=== PATIENT | female | born 1935 | race Caucasian/White ===

== ENCOUNTER 2017-04-03 05:55 | Day surgery (SDC) | payer MEDICARE ==
[2017-03-30 09:18] VITALS: BP 119/65
[~2017-04-03] VITALS: Ht 162.6 cm; Wt 70.9 kg
[2017-04-03] VITALS (12 sets, daily range): BP systolic 118–132; BP diastolic 60–72
[~2017-04-03 05:55] MED LIST: ACETAMINOPHEN PO; ALPH600C3 PO; AMLO5TAB5 PO; ASPI-555 PO; ATOR10 PO; BIOT10005 PO; CALC600T12 PO; ESOM20CA31 PO; GABA-531 PO; GABA300C PO; LISI40TA4 PO; MULT-1192 PO; OMEG-53 PO; OXYCODONE PO; TRAM50TA4 PO; UBID200C18 PO; VITA1CAP PO; VITA1TAB22 PO
[2017-04-03] MEDS ORDERED: CEFAZOLIN SODIUM 1 GM VIAL ONE (06:26)
[2017-04-03] MEDS ORDERED: LACTATED RINGERS 1000ML 1,000 ML IV ONE (06:26)
[2017-04-03] MEDS ORDERED: LIDOCAINE HCL-MPF 0.5% 50ML VIAL IJ ONE (07:15)
[2017-04-03] MEDS ORDERED: GLYCOPYRROLATE 0.2 MG/ML 5 ML VIAL ONE (07:16)
[2017-04-03] MEDS ORDERED: SUCCINYLCHOLINE 200MG/10ML SYR ONE (07:16)
[2017-04-03] MEDS ORDERED: DEXAMETHASONE SOD PHOSPHATE 10MG/ML 1ML VIAL ONE (07:16)
[2017-04-03] MEDS ORDERED: ONDANSETRON HCL 4 MG/2 ML VIAL ONE (07:16)
[2017-04-03] MEDS ORDERED: LIDOCAINE PF 2% 5ML ABBOJECT ONE (07:16)
[2017-04-03] MEDS ORDERED: PROPOFOL 10 MG/ML 20ML VIAL IV ONE (07:17)
[2017-04-03] MEDS ORDERED: FENTANYL CITRATE PF 50 MCG/1 ML 2ML VIAL ONE (07:17)
[2017-04-03] MEDS ORDERED: MIDAZOLAM HCL 1 MG/ML 2ML VIAL ONE (07:17)
== END 2017-04-03 09:45 | disposition home or self-care (01) ==
LOC: DAH 05:55
PROVIDERS: ATTEND Neurological Surgery
DX: G56.02 Carpal tunnel syndrome, left upper limb (principal); Z79.899 Other long term (current) drug therapy; Z88.8 Allergy status to other drugs, medicaments and biological substances; I10 Essential (primary) hypertension; K21.9 Gastro-esophageal reflux disease without esophagitis; E78.5 Hyperlipidemia, unspecified
CPT/HCPCS: 64721; 93005; A4218; J0330; J0690; J1100; J2001; J2250; J2405; J2704; J3010; J3490 ×2; J7030; J7120

== ENCOUNTER 2017-12-18 05:53 | Day surgery (SDC) | payer MEDICARE ==
[2017-12-17 09:40] VITALS: BP 114/60
[~2017-12-18] VITALS: Ht 165.1 cm; Wt 72.1 kg
[2017-12-18] VITALS (15 sets, daily range): BP systolic 109–132; BP diastolic 60–70
[~2017-12-18 05:53] MED LIST changes: -ACETAMINOPHEN PO; -GABA300C PO; +NAPR220C15 PO; -OXYCODONE PO; -VITA1TAB22 PO
[2017-12-18] MEDS ORDERED: LIDOCAINE HCL-MPF 0.5% 50ML VIAL IJ ONE (06:52)
[2017-12-18] MEDS ORDERED: LACTATED RINGERS 1000ML 1,000 ML IV ONE (06:53)
[2017-12-18] MEDS ORDERED: LIDOCAINE PF 2% 5ML ABBOJECT ONE (06:54)
[2017-12-18] MEDS ORDERED: MIDAZOLAM HCL 1 MG/ML 2ML VIAL ONE (06:55)
[2017-12-18] MEDS ORDERED: ONDANSETRON HCL 4 MG/2 ML VIAL ONE (06:55)
[2017-12-18] MEDS ORDERED: DEXAMETHASONE SOD PHOSPHATE 10MG/ML 1ML VIAL ONE (06:55)
[2017-12-18] MEDS ORDERED: PROPOFOL 10 MG/ML 20ML VIAL IV ONE (06:55)
[2017-12-18] MEDS ORDERED: FENTANYL CITRATE PF 50 MCG/1 ML 2ML VIAL ONE (06:56)
[2017-12-18] MEDS: CEFAZOLIN SODIUM 1 GM VIAL ONE ×2 (07:09→07:30)
== END 2017-12-18 09:45 | disposition home or self-care (01) ==
LOC: DAH 05:53
PROVIDERS: ATTEND Neurological Surgery
DX: G56.01 Carpal tunnel syndrome, right upper limb (principal); Z79.899 Other long term (current) drug therapy; Z88.8 Allergy status to other drugs, medicaments and biological substances; I10 Essential (primary) hypertension; M19.90 Unspecified osteoarthritis, unspecified site; Z85.828 Personal history of other malignant neoplasm of skin
CPT/HCPCS: 64721; 93005; A4218; J0690; J1100; J2001; J2250; J2405; J2704; J3010; J3490; J7120 ×2

== ENCOUNTER → 2018-03-25 | Outpatient (CLI) | payer MEDICARE | END | disposition home or self-care (01) | LOC: RAH 10:27 | PROVIDERS: ATTEND Physical Medicine & Rehabilitation | DX: M51.16 Intervertebral disc disorders with radiculopathy, lumbar region (principal); M41.84 Other forms of scoliosis, thoracic region; M48.061 Spinal stenosis, lumbar region without neurogenic claudication | CPT/HCPCS: 72110 ==

== ENCOUNTER → 2018-04-05 | Outpatient (CLI) | payer MEDICARE | END | disposition home or self-care (01) | LOC: RAH 10:54 | PROVIDERS: ATTEND Physical Medicine & Rehabilitation | DX: M16.12 Unilateral primary osteoarthritis, left hip (principal); T84.090A Other mechanical complication of internal right hip prosthesis, initial encounter; M25.752 Osteophyte, left hip; Y83.1 Surgical operation with implant of artificial internal device as the cause of abnormal reaction of the patient, or of later complication, without mention of misadventure at the time of the procedure | CPT/HCPCS: 73502 ==

== ENCOUNTER → 2018-04-22 | Outpatient (CLI) | payer MEDICARE | END | disposition home or self-care (01) | LOC: RAH 13:02 | PROVIDERS: ATTEND Family Medicine | DX: M47.26 Other spondylosis with radiculopathy, lumbar region (principal); M41.86 Other forms of scoliosis, lumbar region; M43.8X6 Other specified deforming dorsopathies, lumbar region; M51.16 Intervertebral disc disorders with radiculopathy, lumbar region | CPT/HCPCS: 72148 ==

== ENCOUNTER → 2018-09-10 | Outpatient (CLI) | payer MEDICARE | END | disposition home or self-care (01) | LOC: RAH 12:55 | PROVIDERS: ATTEND Physical Medicine & Rehabilitation | DX: M47.814 Spondylosis without myelopathy or radiculopathy, thoracic region (principal) | CPT/HCPCS: 72072 ==

== ENCOUNTER → 2022-07-13 | Outpatient (CLI) | payer MEDICARE ==
[~2022-07-13] MED LIST changes: -ASPI-555 PO; +ASPI-556 PO; +CALC-1125 PO; -CALC600T12 PO; +IOHEXOL 350 MG/ML 100ML INFUS..BTL IV ONE; -LISI40TA4 PO; +LISI40TA9 PO
== END | disposition home or self-care (01) ==
LOC: RAH 09:36
PROVIDERS: ATTEND Internal Medicine Cardiovascular Disease
DX: I25.119 Atherosclerotic heart disease of native coronary artery with unspecified angina pectoris (principal); I51.7 Cardiomegaly; M47.815 Spondylosis without myelopathy or radiculopathy, thoracolumbar region
CPT/HCPCS: 75574; Q9967